=== PATIENT | male | born 1960 | race Caucasian/White ===

== ENCOUNTER 2019-02-17 07:16 | Day surgery (SDC) | payer BC ==
[2019-02-17 07:57] VITALS: BMI 53.1
[2019-02-17 08:42] VITALS: TEMP 98.8
[2019-02-17 10:11] VITALS: BP 128/68; PULSE 66
--- NOTE | 2019-02-18 11:16 | PATH ---
Surgical Pathology Report Patient Name: NIKI GUILLORY [facility]. Rec. #: [id number] /Age/Gender: 1960 (Age: 58) / M Account: [id number] Location: U-ENDOSCOPY Taken: 02/17/2019 Received: 02/17/2019 Reported: 02/18/2019 Physicians: Ruy Yu M.D. Specimen(s) Received A: RECTAL POLYPS B: CECAL POLYP Clinical History History of colon adenoma, family history of colon cancer Postoperative diagnosis: Polyps, diverticulosis Final Diagnosis A. RECTAL POLYPS, BIOPSY: HYPERPLASTIC POLYP. POLYPOID COLONIC MUCOSA WITH PROMINENT LYMPHOID AGGREGATE. B. CECAL POLYP, BIOPSY: POLYPOID COLONIC MUCOSA WITH PROMINENT LYMPHOID AGGREGATES. Electronically Signed Marika Aponte M.D. Gross Description A. Received in formalin, labeled "biopsy rectal polyps" are 2 [place], irregular portions of soft tissue measuring 0.1 and 0.3 cm. in greatest dimension. The specimens are submitted in toto in one cassette. B. Received in formalin, labeled "biopsy cecal polyp" is a [place], irregular portion of soft tissue measuring 0.3 cm. in greatest dimension. The specimen is submitted in toto in one cassette. DL/02/17/2019 saudi02/17/2019
== END 2019-02-17 09:45 | disposition home or self-care (01) ==
LOC: JASU-ENDO 07:16
PROVIDERS: ATTEND Internal Medicine Gastroenterology
PROC: 0DBP8ZX Excision of Rectum, Via Natural or Artificial Opening Endoscopic, Diagnostic (ICD-10-PCS; principal; 2019-02-17 08:00)
DX: Z12.11 Encounter for screening for malignant neoplasm of colon (principal); Z86.010 Personal history of colon polyps; K62.1 Rectal polyp; D12.0 Benign neoplasm of cecum; K64.8 Other hemorrhoids; K57.30 Diverticulosis of large intestine without perforation or abscess without bleeding; E11.9 Type 2 diabetes mellitus without complications; Z79.84 Long term (current) use of oral hypoglycemic drugs
CPT/HCPCS: 82962; 88305-TC

== ENCOUNTER 2020-10-11 19:39 | Emergency (ER) | payer BC ==
[2020-10-11] MEDS ORDERED: CASIRIVIMAB/IMDEVIMAB 10 ML in SODIUM CHLORIDE 100 ML IVPB ONE (19:50)
[2020-10-11 20:16] VITALS: BMI 41.5
[2020-10-11 22:49] VITALS: BP 127/60; PULSE 80
[2020-10-12 01:56] VITALS: TEMP 98.4
== END 2020-10-11 23:03 | disposition home or self-care (01) ==
LOC: JCOVINFU 19:39
DX: U07.1 COVID-19 (principal)
CPT/HCPCS: 99284-25; M0240; Q0240